=== PATIENT | male | born 1955 | race Caucasian/White ===

== ENCOUNTER → 2017-11-30 11:29 | Outpatient (CLI) | payer MEDICARE, MEDICAID, SELFPAY ==
[2017-11-30 15:32] LABS: Prostate Specific Ag, Diagnost 8.12 ng/mL (0.0-4.0)
== END ==
PROVIDERS: PCP Emergency Medicine; Visit Provider Urology
DX: R97.20 Elevated prostate specific antigen [PSA] (principal)
CPT/HCPCS: 36415; 84153

== ENCOUNTER → 2018-03-29 11:33 | Outpatient (CLI) | payer MEDICARE, MEDICAID, SELFPAY ==
--- NOTE | 2018-03-29 11:40 | XR_ITS ---
XR chest 2V HISTORY: ITS.REASON: PNEUMONIA ORDERING PHYSICIAN: Theodore Melton MD PATIENT AGE: 62 years COMPARISON: 09/18/2017 FINDINGS: Unremarkable cardiovascular structures. The hilum is prominent consistent with prominent pulmonary arteries from pulmonary hypertension. Hyperinflation consistent with COPD. There are bilateral fibronodular opacities consistent with conglomerate masses. No lobar consolidation or collapse is evident. Parenchymal opacity is present in the right perihilar region which appears slightly more prominent but could be related to the technique. Follow-up may confirm. Mild wedging of several dorsal vertebral bodies unchanged IMPRESSION: COPD with progressive fibrosis/conglomerate masses. Left lower lobe infiltrate has improved. Please see above for detail
== END ==
PROVIDERS: PCP Emergency Medicine; Visit Provider Internal Medicine
DX: J18.9 Pneumonia, unspecified organism (principal)
CPT/HCPCS: 71046

== ENCOUNTER → 2018-08-15 11:15 | Outpatient (REF) | payer MEDICARE, MEDICAID, SELFPAY ==
[2018-08-15 14:26] LABS: Amphetamine/Metha Screen,Urine Negative ng/mL (<1000); Barbiturates Screen,Urine Negative ng/mL (<200); Benzodiazepines Screen,Urine Negative ng/mL (<200); Cannabinoid Screen,Urine Negative ng/mL (<50); Cocaine Screen,Urine Negative ng/mL (<300); Methadone Screen,Urine Negative ng/mL (<300); Opiate Screen,Urine Negative ng/mL (<300); Phencyclidine Screen,Urine Negative ng/mL (<25)
== END ==
LOC: LAB 11:15
PROVIDERS: Visit Provider Emergency Medicine
DX: Z79.899 Other long term (current) drug therapy (principal)
CPT/HCPCS: 80305

== ENCOUNTER → 2018-08-27 13:03 | Outpatient (CLI) | payer MEDICARE, MEDICAID, SELFPAY | PROVIDERS: Visit Provider Emergency Medicine | DX: Z79.899 Other long term (current) drug therapy (principal) ==

== ENCOUNTER → 2018-08-28 13:02 | Outpatient (POV) | payer MEDICARE, MEDICAID, SELFPAY | PROVIDERS: Family Provider Emergency Medicine; PCP Emergency Medicine; Visit Provider Internal Medicine | DX: Z00.00 Encounter for general adult medical examination without abnormal findings (principal) ==

== ENCOUNTER → 2018-09-03 11:33 | Outpatient (CLI) | payer MEDICARE, MEDICAID, SELFPAY ==
[2018-09-03 13:30] VITALS: BP 122/87; BP 145/109; PULSE 108; PULSE 81; PULSE 82; PULSE 83; RESP 22; RESP 28; O2SAT 79; O2SAT 92
== END ==
PROVIDERS: PCP Emergency Medicine; Visit Provider Internal Medicine
DX: J44.9 Chronic obstructive pulmonary disease, unspecified (principal)
CPT/HCPCS: 94060; 94618; 94640; 94726; 94729

== ENCOUNTER → 2018-09-07 10:36 | Outpatient (CLI) | payer MEDICARE, MEDICAID, SELFPAY ==
--- NOTE | 2018-09-07 10:43 | CT_ITS ---
CT chest wo con HISTORY: ITS.REASON: COAL WORKERS PNEUMOCONIOSIS, ABN LUNG IMAGING ORDERING PHYSICIAN: Theodore Melton MD PATIENT AGE: 63 years COMPARISON: 09/18/2017 Technique: Axial images obtained with sagittal and coronal reformats. All CT scans at the facility use one or more dose reduction, viz: automated exposure control, ma/kV adjustment per patient size (including targeted exams where dose is matched to indication, i.e. head), or iterative reconstruction technique. FINDINGS: There are coronary artery calcifications. No mediastinal or hilar mass or adenopathy is evident. No pericardial effusion. There is mild dilatation of the trachea not significant changed. Gas is present within the esophagus which is nonspecific but may be related to reflux. The esophagus does not appear distended. Severe panlobular emphysema with hyperinflation and with conglomerate masses and pulmonary fibrosis once again noted. These are not significantly changed. The left lower lobe consolidation noted on the previous CT scan has resolved. Cystic changes in the left lung base have resolved. There is a 6 mm noncalcified nodule in the left lower lobe laterally slightly larger compared to an older study of 11/17/2015. This area was previously obscured by the consolidation in the left lower lobe on 09/18/2017. No effusions or infiltrates. Upper abdominal images are unremarkable. No new masses. There is wedging of several dorsal vertebral bodies which are not significantly changed with mild kyphosis. IMPRESSION: 1. Severe panlobular emphysema with fibrosis and conglomerate masses which are unchanged. No new nodules or masses evident. 2. Resolved left lower lobe pneumonia and cavitary changes 3. 6 mm left lower lobe nodule slightly more prominent from an older study of 11/17/2015. 4. No change multiple wedge compression changes of the thoracic spine
== END ==
PROVIDERS: PCP Emergency Medicine; Visit Provider Internal Medicine
DX: R91.8 Other nonspecific abnormal finding of lung field (principal); J60 Coalworker's pneumoconiosis
CPT/HCPCS: 71250

== ENCOUNTER → 2018-11-14 13:46 | Outpatient (CLI) | payer MEDICARE, SELFPAY ==
[2018-11-14 14:38] LABS: Amphetamine/Metha Screen,Urine Negative ng/mL (<1000); Barbiturates Screen,Urine Negative ng/mL (<200); Benzodiazepines Screen,Urine Negative ng/mL (<200); Cannabinoid Screen,Urine Negative ng/mL (<50); Cocaine Screen,Urine Negative ng/mL (<300); Methadone Screen,Urine Negative ng/mL (<300); Opiate Screen,Urine Negative ng/mL (<300); Phencyclidine Screen,Urine Negative ng/mL (<25)
[2018-11-19 05:15] LABS: Alprazolam Negative (Cutoff=100); Benzodiazepines Negative ng/mL (Cutoff=100); Clonazepam Negative (Cutoff=100); Flurazepam Negative (Cutoff=100); Lorazepam Negative (Cutoff=100); Midazolam Negative (Cutoff=100); Temazepam Negative (Cutoff=100); Triazolam Negative (Cutoff=100)
== END ==
PROVIDERS: Visit Provider Emergency Medicine
DX: Z79.899 Other long term (current) drug therapy (principal)
CPT/HCPCS: 80305; 80346

== ENCOUNTER → 2018-11-29 11:56 | Outpatient (CLI) | payer MEDICARE, SELFPAY ==
[2018-11-30 17:14] LABS: PSA, Free 0.43 ng/mL; Prostate Specific Ag 8.8 ng/mL (0.0-4.0)
== END ==
PROVIDERS: Visit Provider Urology
DX: R97.20 Elevated prostate specific antigen [PSA] (principal)
CPT/HCPCS: 36415; 84153; 84154

== ENCOUNTER → 2019-05-28 13:31 | Outpatient (POV) | payer MEDICARE, SELFPAY | PROVIDERS: Visit Provider Internal Medicine | DX: Z00.00 Encounter for general adult medical examination without abnormal findings (principal) ==

== ENCOUNTER → 2019-11-28 11:22 | Outpatient (CLI) | payer MEDICARE, SELFPAY ==
[2019-11-30 09:27] LABS: PSA, Free 2.72 ng/mL; Prostate Specific Ag 13.8 ng/mL (0.0-4.0)
== END ==
PROVIDERS: Visit Provider Urology
DX: R97.20 Elevated prostate specific antigen [PSA] (principal)
CPT/HCPCS: 36415; 84153; 84154

== ENCOUNTER → 2020-04-07 09:58 | Outpatient (CLI) | payer MEDICARE, SELFPAY | PROVIDERS: PCP Emergency Medicine; Visit Provider Internal Medicine Sleep Medicine | DX: R06.02 Shortness of breath (principal) | CPT/HCPCS: 94060; 94640 ==

== ENCOUNTER → 2020-08-26 12:34 | Outpatient (CLI) | payer MEDICARE, SELFPAY ==
--- NOTE | 2020-08-26 12:34 | CT_ITS ---
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 All CT scans at the facility use one or more dose reduction, viz: automated exposure control, ma/kV adjustment per patient size (including targeted exams where dose is matched to indication, i.e. head), or iterative reconstruction technique. FINDINGS: HEART AND MEDIASTINAL STRUCTURES: No mediastinal or hilar mass. Coronary artery calcifications are present. LUNGS AND PLEURAL SPACES: There is severe panlobular emphysema. There are scattered areas of scarring with calcified conglomerate masses. There is a 4 mm noncalcified nodule in the left lower lobe posteriorly and medially and a 6 mm noncalcified nodule in the left lower lobe laterally. These are not significantly changed. No central bronchial lesions apparent. BONY STRUCTURES: Multiple wedge compression deformities are once again noted in the thoracic spine not significantly change with mild kyphosis UPPER ABDOMEN: Unremarkable. ADDITIONAL FINDINGS: No other significant abnormalities. IMPRESSION: Overall stable CT appearance of the chest with severe panlobular emphysema and centrilobular emphysema with scattered calcified conglomerate masses. Stable left lower lobe nodules. No change with no acute finding Dictated by: Kalen Crespo MD 08/29/2020 11:36 Kalen Crespo MD in [place] 08/29/2020 11:36
== END ==
PROVIDERS: PCP Emergency Medicine; Visit Provider Internal Medicine Pulmonary Disease
DX: R91.1 Solitary pulmonary nodule (principal)
CPT/HCPCS: 71250

== ENCOUNTER → 2020-12-01 11:24 | Outpatient (CLI) | payer MEDICARE, SELFPAY ==
[2020-12-03 13:46] LABS: PSA, Free 1.95 ng/mL; Prostate Specific Ag 11.9 ng/mL (0.0-4.0)
== END ==
PROVIDERS: Visit Provider Urology
DX: R97.20 Elevated prostate specific antigen [PSA] (principal)
CPT/HCPCS: 36415; 84153; 84154

== ENCOUNTER → 2021-02-22 11:33 | Outpatient (CLI) | payer MEDICARE, SELFPAY ==
[2021-02-27 05:43] LABS: D001-IgE D pteronyssinus <0.10 kU/L (Class 0); D002-IgE D farinae <0.10 kU/L (Class 0); E001-IgE Cat Dander <0.10 kU/L (Class 0); E005-IgE Dog Dander <0.10 kU/L (Class 0); G002-IgE Bermuda Grass <0.10 kU/L (Class 0); G006-IgE Timothy Grass <0.10 kU/L (Class 0); I006-IgE Cockroach, German <0.10 kU/L (Class 0); Immunoglobulin E, Total 32 IU/mL (6-495); M001-IgE Penicillium chrysogen <0.10 kU/L (Class 0); M002-IgE Cladosporium herbarum <0.10 kU/L (Class 0); M003-IgE Aspergillus fumigatus <0.10 kU/L (Class 0); M006-IgE Alternaria alternata <0.10 kU/L (Class 0); T001-IgE Maple/Box Elder <0.10 kU/L (Class 0); T003-IgE Common Silver Birch <0.10 kU/L (Class 0); T006-IgE Cedar, Mountain <0.10 kU/L (Class 0); T007-IgE Oak, White <0.10 kU/L (Class 0); T008-IgE Elm, American <0.10 kU/L (Class 0); T010-IgE Walnut <0.10 kU/L (Class 0); T011-IgE Maple Leaf Sycamore <0.10 kU/L (Class 0); T014-IgE Cottonwood <0.10 kU/L (Class 0); T015-IgE Ash, White <0.10 kU/L (Class 0); T022-IgE Pecan, Hickory <0.10 kU/L (Class 0); T070-IgE White Mulberry <0.10 kU/L (Class 0); W001-IgE Ragweed, Short <0.10 kU/L (Class 0); W011-IgE Thistle, Russian <0.10 kU/L (Class 0); W014-IgE Pigweed, Common <0.10 kU/L (Class 0); W018-IgE Sheep Sorrel <0.10 kU/L (Class 0)
[2021-02-27 08:57] LABS: E072-IgE Mouse Urine <0.10 kU/L (Class 0)
== END ==
PROVIDERS: Visit Provider Internal Medicine Pulmonary Disease
DX: R06.09 Other forms of dyspnea (principal); J45.40 Moderate persistent asthma, uncomplicated; R91.1 Solitary pulmonary nodule; Z87.891 Personal history of nicotine dependence
CPT/HCPCS: 82785; 86003

== ENCOUNTER → 2021-05-05 13:00 | Outpatient (CLI) | payer MEDICARE, SELFPAY ==
[2021-05-05 14:18] LABS: Amphetamine/Metha Screen,Urine Negative ng/ml (<1000); Barbiturates Screen,Urine Negative ng/ml (<200)
[2021-05-05 14:19] LABS: Benzodiazepines Screen,Urine Positive ng/ml (<200)
[2021-05-05 14:20] LABS: Cannabinoid Screen,Urine Negative ng/ml (<50); Cocaine Screen,Urine Negative ng/ml (<300)
[2021-05-05 14:21] LABS: Methadone Screen,Urine Negative ng/ml (<300)
[2021-05-05 14:22] LABS: Opiate Screen,Urine Negative ng/ml (<300)
[2021-05-05 14:23] LABS: Phencyclidine Screen,Urine Negative ng/ml (<25)
== END ==
PROVIDERS: Visit Provider Emergency Medicine
DX: Z79.899 Other long term (current) drug therapy (principal)
CPT/HCPCS: 80305

== ENCOUNTER 2021-07-10 15:29 | Emergency (ER) | payer MEDICARE, SELFPAY ==
[2021-07-10 16:45] VITALS: BP 169/99; PULSE 90; RESP 18; TEMP 36.7; O2SAT 91; BMI 21.1
--- NOTE | 2021-07-10 17:12 | HMH.EDUTC ---
[facility] Disposition Clinical Impression: Cellulitis Qualifiers: Site of cellulitis: unspecified site Qualified Code(s): L03.90 - Cellulitis, unspecified Disposition: Home, Self-Care Condition on Discharge: Good Instructions: Cellulitis, Cephalexin, DI for Cellulitis -- Adult Additional Instructions: *Start antibiotic(s) immediately and be sure to take as ordered for the FULL length of time although you may be feeling better or start to see improvement in the next 24-48 hours *Monitor closely. Outlined redness so that you can monitor easier. Follow up immediately for new or worsening symptoms including but not limited to redness, swelling, streaking from site fever or chills. *Warm compress 15 minutes 3-4 times day *Never squeeze or pop these on your own. Seek immediate medical attention next time this occurs *Monitor Temp. Tylenol every 4 hours as needed and ibuprofen every 6 hours as needed (as long as your primary care doctor has told you that it is ok to take both. For fever, aches, pain. ER if no less that 101 despite Tylenol and ibuprofen Follow up with your family doctor/primary care physician in the next 48-72 hours if no improvement Return if needed Straight to ER if any life threatening symptoms Prescriptions: cephALEXin [cephALEXin 500mg capsule*] 500 mg PO Q8H 7 Days #21 cap Transmission Status: Pending to [facility] #[id number] Referrals: Torres Foley MD [Primary Care Provider] - As needed Time of Disposition: 17:27 Medical Decision Making - Wallace Inquiry Pt receiving controlled substance: No Wallace was queried for this patient: No Vital Signs: 07/10/21 16:45 Temperature 98.0 F Temperature Source Oral Pulse Rate [Right Brachial] 90 Respiratory Rate 18 Blood Pressure [Right Arm] 169/99 H Blood Pressure Mean [Right Arm] 122 Blood Pressure Source [Right Arm] Automatic Cuff Blood Pressure Position [Right Arm] Sitting 02 Sat by Pulse Oximetry 91 L Oxygen Delivery Method Nasal Cannula Medical Decision Narrative: Patient states that he is allergic to amoxicillin but has taken cephalexin in the past without reactions or complications [facility] HPI - General Stated complaint: left elbow Time Seen by Provider: 07/10/21 17:12 Mode of Arrival: Ambulatory Source of Information: Patient Limitations: No Limitations Description of Symptoms (Recalled from Triage Doc. by RN): PATIET C/O RED, SWOLLEN KNOT NEAR LEFT ELBOW. HAD PREVIOUS SURGERY TO THAT ARM 14 YEARS AGO HEENT Symptoms (Recalled from RN notes): No Resp Symptoms (Recalled from RN notes): No Skin Symptoms (Recalled from RN notes): Yes MS Symptoms (Recalled from RN notes): No Functional Status (Recalled from RN notes): WNL - History of Present Illness Provider Complaint: Patient states that he has had sore area that was tender to touch on his left arm just below elbow area state that now area is getting worse and it is red and warm States that redness is spreading down his arm and he was worried it may be infected and wanted to get it checked - Related Data Home Medications Medication Instructions Recorded Confirmed famotidine 20 mg tablet 20 mg PO QDAY 11/30/17 06/10/21 tamsulosin 0.4 mg capsule 0.4 mg PO QDAY 11/30/17 06/10/21 Previous Rx's Medication Instructions Recorded sildenafil (pulm.hypertension) 20 20 mg PO DIRECTED #30 tab 07/09/19 mg tablet loratadine 10 mg tablet 10 mg PO QDAY #90 tab 02/26/20 albuterol sulfate 2.5 mg INHALATION Q8H #360 ml 01/05/21 azithromycin 250 mg tablet 250 mg PO QMWF 90 Days #39 tab 01/07/21 budesonide 0.5 mg/2 mL suspension 0.5 mg INHALATION Q12H #120 ml 01/07/21 for nebulization ipratropium bromide 0.02 % 500 mcg INHALATION Q8H #300 ml 01/07/21 solution for inhalation albuterol sulfate 90 mcg/actuation 1 inh INHALATION QID PRN #6.7 g 02/03/21 aerosol inhaler finasteride 5 mg tablet See Rx Instructions .ROUTE 02/28/21 .COMPLEX #90 tab omeprazole 20 mg capsule,delayed See Rx Instru
[2021-07-10 17:29] VITALS: BP 169/99; PULSE 90; RESP 18; TEMP 36.7; O2SAT 91
== END 2021-07-10 17:56 | disposition home or self-care (01) ==
PROVIDERS: Emergency Provider Nurse Practitioner; PCP Emergency Medicine
DX: L03.114 Cellulitis of left upper limb (principal); F41.9 Anxiety disorder, unspecified; K21.9 Gastro-esophageal reflux disease without esophagitis; J44.9 Chronic obstructive pulmonary disease, unspecified; Z87.891 Personal history of nicotine dependence
CPT/HCPCS: G0463; 99202

== ENCOUNTER → 2021-08-02 14:26 | Outpatient (CLI) | payer MEDICARE, SELFPAY ==
[2021-08-02 15:17] LABS: Phencyclidine Screen,Urine Negative ng/ml (<25)
[2021-08-02 15:26] LABS: Amphetamine/Metha Screen,Urine Negative ng/ml (<1000)
[2021-08-02 15:27] LABS: Barbiturates Screen,Urine Negative ng/ml (<200)
[2021-08-02 15:28] LABS: Benzodiazepines Screen,Urine Positive ng/ml (<200); Cannabinoid Screen,Urine Negative ng/ml (<50)
[2021-08-02 15:29] LABS: Opiate Screen,Urine Negative ng/ml (<300)
[2021-08-02 15:30] LABS: Cocaine Screen,Urine Negative ng/ml (<300); Methadone Screen,Urine Negative ng/ml (<300)
== END ==
PROVIDERS: Visit Provider Emergency Medicine
DX: Z79.899 Other long term (current) drug therapy (principal)
CPT/HCPCS: 80305

== ENCOUNTER → 2021-08-17 16:45 | Outpatient (CLI) | payer MEDICARE, SELFPAY | PROVIDERS: PCP Emergency Medicine; Visit Provider Nurse Practitioner | DX: Z20.822 Contact with and (suspected) exposure to COVID-19 (principal) | CPT/HCPCS: C9803; U0003; U0005 ==

== ENCOUNTER → 2021-09-15 10:41 | Outpatient (CLI) | payer MEDICARE, SELFPAY ==
--- NOTE | 2021-09-15 10:41 | CT_ITS ---
PROCEDURE: CT LUNG SCREENING CLINICAL INDICATION: lung cancer screening COMPARISON: CT CT CHEST WO CON from 08/26/2020 TECHNIQUE: The exam was performed on a GE Light Speed [address] scanner using 2.90 mGy CTDI. A low dose helical CT CHEST was performed on a multi-detector scanner. All CT scans at the facility use one or more dose reduction, viz: automated exposure control, ma/kV adjustment per patient size (including targeted exams where dose is matched to indication, i.e. head), or iterative reconstruction technique. The LDCT was performed in a facility that meets the criteria for the screening program. Data regarding this exam was submitted to ACR which is an approved registry. The order for this exam indicates that it came as a result of a lung cancer screening counseling shard decision-making visit that included all the elements required of such a visit including smoking cessation. The radiologist interpreting this exam meets the CMS criteria for the LDCT lung cancer screening program. The exam is reported using the Lung-RADS classification scale and reported to the ACR registry. NOTE: This study was performed for the specific purposes of lung cancer screening and is not an alternative to diagnostic chest CT. RADIATION DOSE: CTDI vol(CT dose Index-volume) = 2.90mG DLP (Dose Length Product) = 110.72 mGcm FINDINGS: COPD with severe centrilobular emphysema and scattered areas of scarring with partially calcified conglomerate masses and scattered calcified granulomas. There is a stable 6 mm nodule in the subpleural region the left lower laterally. No new nodules apparent. OTHER FINDINGS: Coronary artery calcifications. Kyphosis of the thoracic spine with chronic wedge compression changes of T5, T7 and T12. IMPRESSION: Lung-RADS Category 2 Benign Appearance or Behavior Follow-up: Continue annual screening with LDCT in 12 months Dictated by: Kalen Crespo MD 09/25/2021 06:26 Kalen Crespo MD in [place] 09/25/2021 06:26
== END ==
PROVIDERS: PCP Emergency Medicine; Visit Provider Internal Medicine Pulmonary Disease
DX: Z87.891 Personal history of nicotine dependence (principal); Z12.2 Encounter for screening for malignant neoplasm of respiratory organs
CPT/HCPCS: 71271

== ENCOUNTER 2021-10-10 16:55 | Emergency (ER) | payer MEDICARE, SELFPAY ==
[2021-10-10 18:23] VITALS: BP 155/97; PULSE 87; RESP 16; TEMP 36.9; O2SAT 98; BMI 19.8
--- NOTE | 2021-10-10 18:37 | HMH.EDUTC ---
[facility] Clinical Impression: Exposure to COVID-19 virus COPD (chronic obstructive pulmonary disease) Qualifiers: COPD type: unspecified COPD Qualified Code(s): J44.9 - Chronic obstructive pulmonary disease, unspecified Disposition: Home, Self-Care Condition on Discharge: Fair Instructions: Preventing the Spread of Coronavirus Discharge Instructions, DI for COVID-19 (Suspected or Confirmed ) Additional Instructions: Drink plenty of fluids. Take tylenol for pain or fever. Return if you begin to have difficulty breathing. Follow up with your regular doctor. GO TO THE ER FOR ANY WORSENING SYMPTOMS Quarantine until you know the results of your covid-19 test. If it is positive, the health department should call you and give you further instructions about your length of Quarantine and other things. Notify your school or workplace of your results and follow their instructions regarding return to work/school. Referrals: Torres Foley MD [Primary Care Provider] - Time of Disposition: 18:55 Medical Decision Making - Medical Records Medical records reviewed: No: I reviewed the patient's medical records. - Wallace Inquiry Pt receiving controlled substance: No Vital Signs: 10/10/21 18:23 Temperature 98.4 F Temperature Source Oral Pulse Rate [Left] 87 Respiratory Rate 16 Blood Pressure [Right Arm] 155/97 H Blood Pressure Mean [Right Arm] 116 02 Sat by Pulse Oximetry 98 Oxygen Delivery Method Nasal Cannula Oxygen Flow Rate (LPM) 2 [facility] HPI - General Stated complaint: covid symptoms and test Time Seen by Provider: 10/10/21 18:37 Mode of Arrival: Ambulatory Source of Information: Patient Limitations: No Limitations Description of Symptoms (Recalled from Triage Doc. by RN): pt was exposed to covid positive [facility]. pt is asymptomatic. HEENT Symptoms (Recalled from RN notes): No Resp Symptoms (Recalled from RN notes): No Skin Symptoms (Recalled from RN notes): No MS Symptoms (Recalled from RN notes): No Functional Status (Recalled from RN notes): wnl - History of Present Illness Provider Complaint: He has been exposed to covid-19 by his grand daughter having it and she has been sleeping in the bed with him and his . He denies any symptoms so far. He has a history copd. He is on oxygen at 2 lpm around the clock. He denies increased cough or shortness of breath. - Related Data Home Medications Medication Instructions Recorded Confirmed famotidine 20 mg tablet 20 mg PO QDAY 11/30/17 08/02/21 tamsulosin 0.4 mg capsule 0.4 mg PO QDAY 11/30/17 08/02/21 Previous Rx's Medication Instructions Recorded sildenafil (pulm.hypertension) 20 20 mg PO DIRECTED #30 tab 07/09/19 mg tablet loratadine 10 mg tablet 10 mg PO QDAY #90 tab 02/26/20 albuterol sulfate 2.5 mg INHALATION Q8H #360 ml 01/05/21 azithromycin 250 mg tablet 250 mg PO QMWF 90 Days #39 tab 01/07/21 budesonide 0.5 mg/2 mL suspension 0.5 mg INHALATION Q12H #120 ml 01/07/21 for nebulization albuterol sulfate 90 mcg/actuation 1 inh INHALATION QID PRN #6.7 g 02/03/21 aerosol inhaler omeprazole 20 mg capsule,delayed See Rx Instructions .ROUTE 03/23/21 release .COMPLEX #90 cap montelukast 10 mg tablet See Rx Instructions .ROUTE 03/30/21 .COMPLEX #90 tab cephALEXin [cephALEXin 500mg 500 mg PO Q8H 7 Days #21 cap 07/10/21 capsule*] ipratropium bromide 0.02 % 500 mcg INHALATION Q8H #300 ml 07/26/21 solution for inhalation alprazolam 0.25 mg tablet 0.25 mg PO TID 30 Days #90 tab 08/02/21 finasteride 5 mg tablet See Rx Instructions .ROUTE 08/23/21 .COMPLEX #90 tab trazodone 50 mg tablet See Rx Instructions .ROUTE 08/23/21 .COMPLEX #90 tab prednisone 5 mg tablet See Rx Instructions .ROUTE 09/06/21 .COMPLEX #90 tab Allergies Allergy/AdvReac Type Severity Reaction Status Date / Time fluticasone Allergy Severe S-SWELLS-OR Verified 08/02/21 10:44 [From Adv Disk] AL/THROAT Iodinated Contrast M
[2021-10-10 19:05] VITALS: BP 155/97; PULSE 87; RESP 16; TEMP 36.9
== END 2021-10-10 19:15 | disposition home or self-care (01) ==
PROVIDERS: Emergency Provider Nurse Practitioner Family; PCP Emergency Medicine
DX: Z20.822 Contact with and (suspected) exposure to COVID-19 (principal); J44.9 Chronic obstructive pulmonary disease, unspecified; Z99.81 Dependence on supplemental oxygen; K21.9 Gastro-esophageal reflux disease without esophagitis; Z87.891 Personal history of nicotine dependence
CPT/HCPCS: G0463; 99202; C9803; U0003; U0005

== ENCOUNTER → 2021-10-18 18:17 | Outpatient (CLI) | payer MEDICARE, SELFPAY | PROVIDERS: PCP Emergency Medicine; Visit Provider Nurse Practitioner Family | DX: U07.1 COVID-19 (principal) | CPT/HCPCS: C9803; U0003; U0005 ==

== ENCOUNTER 2021-10-20 10:09 | Outpatient (CLI) | payer MEDICARE, SELFPAY ==
[2021-10-20] VITALS (8 sets, daily range): BP systolic 110–124; BP diastolic 66–91; PULSE 65–89; RESP 22; TEMP 36.8–36.9; O2SAT 91–98
== END 2021-10-20 12:40 | disposition home or self-care (01) ==
LOC: INF 10:10
PROVIDERS: PCP Emergency Medicine; Visit Provider Emergency Medicine
DX: U07.1 COVID-19 (principal); Z23 Encounter for immunization
CPT/HCPCS: 96365

== ENCOUNTER → 2021-12-30 11:32 | Outpatient (CLI) | payer MEDICARE, SELFPAY ==
[2021-12-31 11:34] LABS: Prostate Specific Ag 16.6 ng/mL (0.0-4.0)
== END ==
PROVIDERS: Visit Provider Urology
DX: R97.20 Elevated prostate specific antigen [PSA] (principal)
CPT/HCPCS: 36415; 84153; 84154

== ENCOUNTER → 2022-07-25 07:43 | Outpatient (CLI) | payer MEDICARE, SELFPAY ==
[2022-07-25 20:29] LABS: Basophils # 0.1 K/mm3 (0-0.2); Basophils % 0.9 % (0.1-2.0); Eosinophils # 0.1 K/mm3 (0.0-0.4); Eosinophils % 1.3 % (0.1-12.0); Hematocrit 51.5 % (42.0-52.0); Hemoglobin 16.2 g/dL (14.1-18.0); Lymphocytes # 1.6 K/mm3 (0.7-4.5); Lymphocytes % 16.6 % (10-50); Mean Corpuscular HGB Conc 31.4 g/dL (31.8-35.4); Mean Corpuscular Hemoglobin 29.4 pg (27.0-31.2); Mean Corpuscular Volume 93.6 fl (80-94); Mean Platelet Volume 9.9 fl (7.4-10.4); Monocytes # 0.6 K/mm3 (0.1-1.0); Monocytes % 6.1 % (1.7-9.3); Neutrophils # 7.2 K/mm3 (1.8-7.8); Platelet Count 266 K/mm3 (142-424); Red Cell Distribution Width 15.2 % (11.5-17.5); White Blood Count 9.7 K/mm3 (4.8-10.8)
[2022-07-25 20:44] LABS: Alanine Aminotransferase 23 U/L (12-78); Albumin Level 3.9 g/dl (3.5-5.0); Albumin/Globulin Ratio 1.6 (1.1-1.8); Alkaline Phosphatase 87 U/L (38-126); Anion Gap 14.7 mEq/L (5-15); Aspartate Amino Transferase 32 U/L (17-59); Bilirubin,Total 0.5 mg/dl (0.2-1.3); Blood Urea Nitrogen 11 mg/dl (9-20); Calcium 9.2 mg/dl (8.4-10.2); Carbon Dioxide 32 mmol/L (22.0-30.0); Chloride 94 mmol/L (98-107); Estimated Glomerular Filt Rate 84 ml/min (>60); GFR (African American) 102 ML/MIN (>60); Globulin 2.5 g/dL (1.3-3.2); Glucose 91 mg/dl (74-100); Potassium 4.7 mmoL/L (3.5-5.1); Sodium 136 mmol/L (136-145); Total Protein,Serum 6.4 g/dl (6.3-8.2)
[2022-07-25 20:56] LABS: Troponin I 0.02 ng/ml (0.00-0.034)
== END ==
PROVIDERS: PCP Emergency Medicine; Visit Provider Emergency Medicine
DX: J44.9 Chronic obstructive pulmonary disease, unspecified (principal)
CPT/HCPCS: 80053; 84484; 85025

== ENCOUNTER → 2022-09-19 13:05 | Outpatient (CLI) | payer MEDICARE, SELFPAY ==
--- NOTE | 2022-09-19 13:23 | CT_ITS ---
FINAL REPORT CLINICAL HISTORY: lung cancer screening. former smoker, quit 7 years ago. smoked 2 ppd x 15 years. COPD, empyema COMPARISON: 09/15/2021 FINDINGS: CTDI vol (mGy): 2.[address] images of the chest were obtained using the low-dose protocol for screening. There is no evidence of mediastinal or hilar mass or adenopathy. No axillary mass or adenopathy is identified. Again seen are partially calcified conglomeration of masses which are unchanged. Bulky calcification in the left lower lobe is stable. Noncalcified nodule in the periphery of the left lower lobe measuring 6 mm is also unchanged. Findings are best seen on image 68 of series 3. IMPRESSION: Stable findings as above. No new mass or nodule. Lung RADS category 2. Recommend 12 month followup low-dose CT for further evaluation. Reviewed, Interpreted and Dictated by Salvatore Ayala MD Transcribed by More Ingram Authenticated and . [facility]
[2022-09-19 15:35] VITALS: PULSE 108; PULSE 99
--- NOTE | 2022-09-19 16:15 | RESP.PFTSS ---
Patient refused [address].
== END ==
PROVIDERS: PCP Emergency Medicine; Visit Provider Internal Medicine Pulmonary Disease
DX: Z12.2 Encounter for screening for malignant neoplasm of respiratory organs; Z87.891 Personal history of nicotine dependence; R06.02 Shortness of breath
CPT/HCPCS: 71271; 94060; 94640; 94727; 94729

== ENCOUNTER 2022-09-19 13:44 | Outpatient (RCR) | payer MEDICARE, SELFPAY | END 2022-09-19 13:50 | disposition home or self-care (01) | LOC: ST 13:44 | PROVIDERS: PCP Emergency Medicine; Visit Provider Internal Medicine Pulmonary Disease | DX: J69.0 Pneumonitis due to inhalation of food and vomit (principal) | CPT/HCPCS: 92610 ==

== ENCOUNTER 2022-09-29 14:51 | Inpatient (IN) | payer MEDICARE, SELFPAY ==
[2022-09-29] VITALS (13 sets, daily range): BP systolic 101–129; BP diastolic 77–106; PULSE 93–116; RESP 20–35; TEMP 36.4; O2SAT 84–97; BMI 19.0
--- NOTE | 2022-09-29 14:53 | XR_ITS ---
PROCEDURE INFORMATION: Exam: XR Chest Exam date and time: 09/29/2022 3:14 PM Age: 67 years old Clinical indication: Shortness of breath; Additional info: SOA TECHNIQUE: Imaging protocol: Radiologic exam of the chest. Views: 1 view. COMPARISON: CT CHEST WO CON 08/26/2020 1:08 PM FINDINGS: Lungs: There is redemonstration of regions of architectural distortion and granulomas in pulmonary apices. Background of advanced emphysema. No evidence of pneumonia or interstitial edema. Pleural spaces: Unremarkable. No pleural effusion. No pneumothorax. Heart/Mediastinum: Prominent left pulmonary artery can be seen in the context of pulmonary hypertension. Bones/joints: Unremarkable. IMPRESSION: 1. Background of advanced emphysema. No evidence of pneumonia or interstitial edema. 2. Prominent left pulmonary artery can be seen in the context of pulmonary hypertension.
--- NOTE | 2022-09-29 14:55 | PC.NURSE ---
Pt sat 88 on 5 L NC, respiratory called and placed on bipap per MD request. at bs.
--- NOTE | 2022-09-29 14:56 | HMH.EDGENADL ---
Discharge Plan Disposition Patient Disposition: Admitted As Inpatient Condition: Critical Clinical Impressions Clinical Impression: Acute on chronic respiratory failure with hypoxia and hypercapnia, Acute exacerbation of chronic obstructive pulmonary disease, Acute dehydration, Elevated troponin, Septic shock, Hyponatremia, Acidosis, lactic Discharge ED Provider: Wilfrid Corrigan General Adult HPI General Chief complaint: Shortness of Breath/Dyspnea Stated complaint: soa Time Seen by Provider: 09/29/22 14:51 History of Present Illness HPI narrative: Brought in by ambulance. Initial history obtained from EMS. EMS reports that the patient had increased breathing difficulty starting today. They report that he hyperventilated after their arrival and passed out. Initially was speaking to them. Now he is nonverbal. They report he has had a recent visit to Dr. Foley and is on steroids. The patient was put on a nonrebreather mask during transport and was given a DuoNeb treatment. After arrived I spoke with her and she reports that he has recently been short of breath and coughing. Small amounts of sputum production. No fever noted. She states both she and their 10-year-old are currently on antibiotics for respiratory infections and she thinks he may have caught something from them. She also says that they have a blocker and sewer leak in their basement which is producing some foul odors and causing them to burn in their chest. She also reports he is only peed once in 2 days. Related Data Home Medications Medication Instructions Recorded Confirmed famotidine 20 mg tablet 20 mg PO QDAY stomach 11/30/17 09/29/22 albuterol sulfate 2.5 mg/3 mL 2.5 mg inhalation Q6H soa 09/29/22 09/29/22 (0.083 %) solution for nebulization alprazolam 0.25 mg tablet 0.25 mg PO TID Anxiety 09/29/22 09/29/22 budesonide 0.5 mg/2 mL suspension 0.5 mg inhalation Q12H soa 09/29/22 09/29/22 for nebulization finasteride 5 mg tablet 5 mg PO DAILY prostate 09/29/22 09/29/22 fluticasone furoate 100 1 inh inhalation DAILY soa 09/29/22 09/29/22 mcg-vilanterol 25 mcg/dose inhalation powder (Breo Ellipta) ipratropium bromide 0.02 % 500 mcg inhalation Q8H soa 09/29/22 09/29/22 solution for inhalation levofloxacin 500 mg tablet 500 mg PO DAILY COPD 09/29/22 09/29/22 loratadine 10 mg tablet 10 mg PO QDAY allergies 09/29/22 09/29/22 montelukast 10 mg tablet 10 mg PO DAILY allergies 09/29/22 09/29/22 omeprazole 20 mg capsule,delayed 20 mg PO DAILY stomach 09/29/22 09/29/22 release prednisone 5 mg tablet 5 mg PO DAILY lungs 09/29/22 09/29/22 sildenafil (pulm.hypertension) 20 20 mg PO DIRECTED PRN . 09/29/22 09/29/22 mg tablet trazodone 50 mg tablet 50 mg PO HS sleep 09/29/22 09/29/22 Previous Rx's Medication Instructions Recorded albuterol sulfate 90 mcg/actuation 1 inh inhalation QID PRN shortness 01/25/22 aerosol inhaler of breath or wheezing 90 days #6.7 grams acetaminophen 300 mg-codeine 30 mg 1 tab PO BID PRN pain #60 tabs 07/25/22 tablet Allergies Allergy/AdvReac Type Severity Reaction Status Date / Time fluticasone Allergy Severe S-SWELLS-OR Verified 09/27/22 13:41 [From Advair Diskus] AL/THROAT Iodinated Contrast Media Allergy Severe S-SWELLS-OR Verified 09/27/22 13:41 [Iodinated Contrast Media - AL/THROAT IV Dye] salmeterol Allergy Severe S-SWELLS-OR Verified 09/27/22 13:41 [From Advair Diskus] AL/THROAT amoxicillin [AMOXICILLIN] Allergy Mild Unknown Verified 09/27/22 13:41 allergy reaction PFSH PFSH Social History Smoking Status: Former smoker alcohol intake: never substance use type: denies use current occupational status: disabled Travel in the last 8 weeks: None household members: family housing: house ROS Obtained: Yes unobtainable due to mental status Physical Exam General General appearance: alert and in distress (Tachypnea, labored respirations) Comment:
[2022-09-29 15:06] LABS: ABG Base Excess -11.2 mmol/L (-2.4-2.3); ABG HCO3 19.2 mmhg (22.0-26.0); ABG Oxygen Saturation 91 % (90-100); ABG PO2 81.8 mmhg (80-100); ABG TCO2 21.3 mmhg (23-27)
[2022-09-29 15:07] LABS: Coronavirus 19, PCR Not Detected (NotDetected); Influenza A, PCR Not Detected (NotDetected); Influenza B, PCR Not Detected (NotDetected)
[2022-09-29 15:10] LABS: Basophils # 0.1 K/mm3 (0-0.2); Basophils % 0.6 % (0.1-2.0); Eosinophils % 0.3 % (0.1-12.0); Hematocrit 56.8 % (42.0-52.0); Hemoglobin 17.8 g/dL (14.1-18.0); Lymphocytes # 2.1 K/mm3 (0.7-4.5); Lymphocytes % 16.8 % (10-50); Mean Corpuscular HGB Conc 31.4 g/dL (31.8-35.4); Mean Corpuscular Hemoglobin 29.7 pg (27.0-31.2); Mean Corpuscular Volume 94.8 fl (80-94); Mean Platelet Volume 8.9 fl (7.4-10.4); Monocytes # 0.7 K/mm3 (0.1-1.0); Monocytes % 5.3 % (1.7-9.3); Neutrophils # 9.4 K/mm3 (1.8-7.8); Neutrophils % 76.9 % (37.0-80.0); Platelet Count 244 K/mm3 (142-424); Red Blood Count 5.99 M/mm3 (4.60-6.20); Red Cell Distribution Width 14.3 % (11.5-17.5); White Blood Count 12.2 K/mm3 (4.8-10.8)
--- NOTE | 2022-09-29 15:10 | PC.NURSE ---
Pt tolerating bipap with sat of 96. pt is awake and able to verbalize needs at this time.
--- NOTE | 2022-09-29 15:16 | ECG_ITS ---
APPROVED REPORT Exam: Resting ECG HR:99 bpm ECG Measurements Heart Rate 99 AXES MO 147 P 81 QRSd 101 QRS 210 QT 324 T 57 QTc 380 Conclusion SINUS RHYTHM PATTERN CONSISTENT WITH PULMONARY DISEASE RIGHT VENTRICULAR HYPERTROPHY [SOME/ALL OF: PROMINENT R IN V1, LATE TRANSITION, RAD, MATT, SSS] ABNORMAL ECG UNCONFIRMED REPORT Electronically signed by : Emery Conroy MD 09/29/2022 20:09:01
[2022-09-29 15:20] LABS: Allen's Test ACCEPTABLE; Oxygen 5 LPM %; Source Left Radial
[2022-09-29 15:21] LABS: ABG PCO2 69.7 mmhg (35.0-45.0); ABG PH 7.06 mmol/L (7.35-7.45)
[2022-09-29 15:24] LABS: Chloride 90 mmol/L (98-107); Potassium 5.5 mmoL/L (3.5-5.1); Sodium 127 mmol/L (136-145)
[2022-09-29 15:27] LABS: Alanine Aminotransferase 88 U/L (12-78); Albumin Level 4.4 g/dl (3.5-5.0); Albumin/Globulin Ratio 1.5 (1.1-1.8); Alkaline Phosphatase 74 U/L (38-126); Aspartate Amino Transferase 108 U/L (17-59); Bilirubin,Total 0.8 mg/dl (0.2-1.3); Blood Urea Nitrogen 35 mg/dl (9-20); Calcium 9.2 mg/dl (8.4-10.2); Carbon Dioxide 19 mmol/L (22.0-30.0); Creatinine Clearance Estimated 41 mL/min (50-200); Estimated Glomerular Filt Rate 55 ml/min (>60); GFR (African American) 66 ML/MIN (>60); Glucose 168 mg/dl (74-100); Total Protein,Serum 7.4 g/dl (6.3-8.2)
--- NOTE | 2022-09-29 15:30 | PC.NURSE ---
PT given a few sips of water for dry mouth. at bs
[2022-09-29 15:38] LABS: Anion Gap 23.5 mEq/L (5-15)
[2022-09-29 15:42] LABS: Lactic Acid 5.1 mmol/L (0.7-2.1); Troponin I 0.57 ng/ml (0.00-0.034)
--- NOTE | 2022-09-29 16:00 | PC.NURSE ---
pt resting on bipap, able to go to sleep at this time. at bs
--- NOTE | 2022-09-29 17:22 | PC.NURSE ---
report called to Laila Cesar RN
--- NOTE | 2022-09-29 17:54 | PC.NURSE ---
Started: 1754:Cardiac monitoring PEA spontaneous respirations at this time is assisted by Bipap. ACLS initiated. Started bag valve mask. 175: stated pt already had [address] 1757: epi given 1758: pulse check Cardiac monitoring PEA 1759: doppler check Cardiac monitoring PEA 1800: PT intubated with 7 1/ 1800: Epi #2 1802: Pulse check Cardiac monitoring PEA 1802: Checked BS is 150 1803: Landry was placed 1803: Epi #3 given 1804: pulse check Cardiac monitoring PEA 1805: Bicarb given 1806: Pulse check Cardiac monitoring PEA 1807: Epi #4 given 1808:Pulse check Cardiac monitoring PEA 1809:Bicarb given 1809:Dr. Yvonne Sadler spoke with and decided to with [facility] care. 1809: TOReina
--- NOTE | 2022-09-29 18:22 | P.PN_ITS ---
Critical Care Event Note Summary Code activated: Yes Narrative: This case had a high probability of a clinically significant, sudden, or life threatening deterioration of this patient's condition which required my full and direct attention, intervention and personal management. Critical care time: less than 30 mins [facility] Critical Care Exam Physical Exam Vital signs: Temp Pulse Resp BP Pulse Ox FiO2 97.5 F L 105 H 34 H 124/87 93 L 30 09/29/22 17:34 09/29/22 17:34 09/29/22 17:34 09/29/22 17:34 09/29/22 17:02 09/29/22 15:32 Additional findings Additional findings: WILLEM GENE called on the patient after he arrived to the floor. Reportedly he had been off of his BiPAP briefly and became unresponsive. Found to be in PEA. Upon my arrival Dr. Sadler, hospitalist, was managing the cardiac arrest. The patient is in PEA, pulseless and apneic, with CPR in progress. He requested that I intubate the patient. The patient was intubated emergently using glide scope. A 7.5 endotracheal tube. Tube seen to go between the vocal cords. Inserted to 22 cm at the corner of the mouth. Balloon inflated. Good color change on end tidal CO2. Good bilateral breath sounds and no sounds over the epigastrium. The patient remained in PEA after intubation.
--- NOTE | 2022-09-29 18:56 | PC.NURSE ---
Addendum entered by Rere Melendez RN 09/29/22 20:40: lung assessment findings were spontaneous and diminished. Original Note: 1750 upon entering room to assess pt following change in admission status to stepdown. upon pt assessment pt was noted to be purple and gloria. pt fingers noted to be purple in color as well. RN currently caring for pt was presently at bedside. unable to arouse pt with sternal rub. MD notified of pt status. code status verified to be a full code with pt . ACLS code started at 1754.
--- NOTE | 2022-09-29 19:13 | EXP.HPDC ---
General Admission date:: 09/29/22 Discharge date: 09/29/22 *Admission Date: 09/29/22 *Chief complaint: Shortness of breath *History of present illness: Patient is 67-year-old male who presented to the emergency department with a acute on chronic hypoxemic respiratory failure secondary to COPD and pulmonary fibrosis. Patient has been managed on an outpatient basis for this exacerbation by his primary care physician for the past 2 days with antibiotics and steroids. Patient reportedly became anuric at home, contacted his PCP who instructed him to present to the emergency department. Upon arrival to the emergency department patient was in acute hypercarbic and hypoxemic respiratory failure. Blood gas showed mixed respiratory and metabolic acidosis. Patient was somnolent and placed on BiPAP ventilation with return of his mentation and clinical status. Hospitalist service was contacted for admission. Upon evaluation patient was on BiPAP and unable to provide thorough history due to underlying speech impediment and BiPAP mask. Patient and indicated that he was full code resuscitation status. Majority of history was obtained through his which is consistent with history from above. Patient endorsed anxiety and sensation of shortness of breath. He had chest pain with inspiration. He had dry mouth. He denied abdominal pain. Other history was unable to be obtained due to critical illness and BiPAP. Patient was accepted to stepdown on hospitalist service. During transport to second floor patient was temporarily off of his BiPAP. No stepdown beds were available and patient was emergently placed into a available room and put on BiPAP. Shortly after replacement of his BiPAP patient went unresponsive. I immediately responded to the patient and he was apneic, unresponsive and without palpable pulses. I called [facility] and began managing his pulseless electrical activity cardiac arrest. [facility] response team arrived and patient was emergently intubated. Patient remained in PEA following securing airway. After approximately 15 minutes family instructed service to stop resuscitation efforts and the patient was pronounced at 1809 [facility] Social History Smoking Status: Former smoker alcohol intake: never substance use type: denies use current occupational status: disabled Travel in the last 8 weeks: None household members: family housing: house Review of Systems Review of Systems Review of systems:: unable to obtain and pertinent systems reviewed and negative unless documented below Exam Data for Last 24 hours Vital signs and Labs for Last 24 Hours: Temp Pulse Resp BP Pulse Ox FiO2 97.5 F L 93 H 25 H 129/106 H 93 L 30 09/29/22 17:50 09/29/22 17:50 09/29/22 17:50 09/29/22 17:50 09/29/22 17:50 09/29/22 15:32 Laboratory Results - last 24 hr 09/29/22 14:53: Specimen Source Left radial, O2 % 5 lpm, ABG pH 7.06 L*, ABG pCO2 69.7 H, ABG pO2 81.8, ABG HCO3 19.2 L, ABG Total CO2 21.3 L, ABG O2 Saturation 91, ABG Base Excess -11.2 L, Kalen Test Acceptable 09/29/22 14:59: WBC 12.2 H, RBC 5.99, Hgb 17.8, Hct 56.8 H, MCV 94.8 H, MCH 29.7, MCHC 31.4 L, RDW 14.3, Plt Count 244, MPV 8.9, Neut % (Auto) 76.9, Lymph % (Auto) 16.8, Mercer % (Auto) 5.3, Eos % (Auto) 0.3, Baso % (Auto) 0.6, Neut # (Auto) 9.4 H, Lymph # (Auto) 2.1, Mercer # (Auto) 0.7, Eos # (Auto) 0.0, Baso # (Auto) 0.1 09/29/22 14:59: Sodium 127 L, Potassium 5.5 H, Chloride 90 L, Carbon Dioxide 19 L, Anion Gap 23.5 H, BUN 35 H, Creatinine 1.30 H, Estimated Creat Clear 41, Estimated GFR 55 L, Est GFR ( Amer) 66, Glucose 168 H, Calcium 9.2, Total Bilirubin 0.8, AST 108 H, ALT 88 H, Alkaline Phosphatase 74, Troponin I 0.57 H, Total Protein 7.4, Albumin 4.4, Globulin 3.0, Albumin/Globulin Ratio 1.5 09/29/22 14:59: Lactate 5.1 H 09/29/22 14:59: SARS-CoV-2 (PCR) Not detected, Influenza A Untype (PCR) Not d
--- NOTE | 2022-09-29 19:56 | EXP.DEATH.NO ---
Pronouncement Note Date and Time of Date of : 09/29/22 Time of : 18:09 PCOD Preliminary cause of : Respiratory failure Contributing Factors (1) Acute on chronic respiratory failure with hypoxia and hypercapnia: Contributing factors: End-stage COPD (2) Pulseless electrical activity: Contributing factors: Acute hypoxemia Summary Additional details: patient was admitted to stepdown service for acute hypoxemic and hypercarbic respiratory failure secondary to end-stage COPD and pulmonary fibrosis exacerbation.? Patient arrived on the floor after temporarily being off of his BiPAP.? Patient was emergently placed into a room and put on his BiPAP and shortly after became unresponsive.? I immediately went to assess the patient where he was found to be in pulseless electrical activity, apneic and unresponsive [facility] was called. I began managing his pulseless electrical activity cardiac arrest.? [facility] response team arrived and patient was emergently intubated.? Patient remained in PEA following securing airway.? After approximately 15 minutes family instructed service to stop resuscitation efforts and the patient was pronounced at 1809 Additional Data Confirmation of : no pulse Family: at bedside Additional persons at bedside: other Attending/PCP notified?: Yes Attending physician: Amisha Sadler MD Was code activated?: Yes Autopsy requested?: No finished yarn examiner notified?: Yes Organ bank notified?: Yes Advance directives: No
--- NOTE | 2022-09-29 20:21 | PC.NURSE ---
Addendum entered by Rere Melendez RN 09/29/22 20:47: correct name of home is: [facility] notified at 2048 Original Note: late entry: 1829 called and spoke with Puneet Maldonado pt ruled out as a services tech case [id number] called and spoke with Josiah with [employer] pt ruled out for donation Josiah Mendez case # [id number] family states that they wish to use [facility] in [facility] [phone]
== END 2022-09-29 22:45 | disposition expired | DRG 189 ==
LOC: ER 16:24 → 2ND 19:30
PROVIDERS: Admitting Provider Student in an Organized Health Care Education/Training Program; Emergency Provider Emergency Medicine; PCP Emergency Medicine; Visit Provider Student in an Organized Health Care Education/Training Program
DX: J96.21 Acute and chronic respiratory failure with hypoxia (principal); J44.1 Chronic obstructive pulmonary disease with (acute) exacerbation; E87.1 Hypo-osmolality and hyponatremia; E87.20 Acidosis, unspecified; E87.4 Mixed disorder of acid-base balance; J96.22 Acute and chronic respiratory failure with hypercapnia; E86.0 Dehydration; Z87.891 Personal history of nicotine dependence; Z99.81 Dependence on supplemental oxygen; I46.9 Cardiac arrest, cause unspecified; J84.10 Pulmonary fibrosis, unspecified
CPT/HCPCS: 31500; 71045; 80053; 82803; 83605; 84484; 85025; 87040; 93005; 99291; C9803; J0456; J0696; U0003; U0005